=== PATIENT | male | born 1995 ===

== ENCOUNTER 2019-07-14 09:33 | Outpatient (CLI) | payer OTHER ==
[2019-07-14] MEDS ORDERED: OMNIPAQUE 350 MG/ML, 100ML BOTTLE ONE (14:48)
== END 2019-07-14 23:59 | disposition home or self-care (01) ==
LOC: CFH 09:33
PROVIDERS: ATTEND Nurse Practitioner Primary Care
DX: R22.1 Localized swelling, mass and lump, neck (principal)
CPT/HCPCS: 70491; Q9967